=== PATIENT | female | born 1975 | race Caucasian/White ===

== ENCOUNTER → 2024-04-25 | Emergency (ER) | payer OTHER ==
[~2024-04-25] VITALS: Ht 167.6 cm; Wt 81.8 kg
[~2024-04-25] MED LIST: ARIP20TA PO; ARIP30TA PO; DIVA-111 PO; INSLAN SQ; INSU100V51 SQ; LAMO25TA36 PO; LANS15CA14 PO; LITH300C3 PO; METF-1211 PO; METF-446 PO; METO25 PO; ROSU20TA73 PO; SEMA1PEN3 SQ; SERT-439 PO; SERT-440 PO
[2024-04-25 15:54] VITALS: TEMP 98.1
[2024-04-25 16:32] LABS: BASOPHILS % (AUTO) 0.2 % (0.0-2.0); EOSINOPHILS % (AUTO) 1.2 % (1.0-6.0); HEMATOCRIT 38.8 % (36-46); HEMOGLOBIN 12.1 g/dL (12.0-16.0); LYMPHOCYTES # (AUTO) 3.7 K/uL (1.0-4.8); LYMPHOCYTES % (AUTO) 36.8 % (22.0-44.0); MEAN CORPUSCULAR HEMOGLOBIN 22.9 pg (26.0-34.0); MEAN CORPUSCULAR HGB CONC 31.1 G/dL (31.0-37.0); MEAN CORPUSCULAR VOLUME 74 fL (80-100); MONOCYTES # (AUTO) 0.6 K/uL (0.1-1.0); MONOCYTES % (AUTO) 5.9 % (2.0-9.0); NEUTROPHILS # (AUTO) 5.7 K/uL (1.8-7.7); NEUTROPHILS % (AUTO) 55.9 % (40.0-70.0); PLATELET COUNT (AUTO) 239 K/uL (150-450); RED BLOOD CELL COUNT(AUTO) 5.27 MIL/uL (4.00-5.20); RED CELL DISTRIBUTION WIDTH 17.4 % (11.5-14.5); WHITE BLOOD COUNT (AUTO) 10.2 K/uL (4.5-11.0)
[2024-04-25 16:45] LABS: RBC MORPHOLOGY COMMENT ABNORMAL RBC MORPH
[2024-04-25 16:50] LABS: ANION GAP 10 mmol/L (8-16); CALCIUM, TOTAL 8.8 mg/dL (8.8-10.5); CARBON DIOXIDE 26 mmol/L (22-29); CHLORIDE 104 mmol/L (98-107); CREATININE 0.59 mg/dL (0.60-1.30); GLOMERULAR FILTR. RATE CALC > 60 mL/min (>60); GLUCOSE,RANDOM 97 mg/dL (70-110); POTASSIUM 4.1 mmol/L (3.5-5.1); SODIUM SERUM 140 mmol/L (136-145); UREA NITROGEN, BLOOD 8 mg/dL (7-18)
[2024-04-25 16:53] LABS: ALCOHOL, BLOOD (SERUM) < 3 mg/dL (0-10)
[2024-04-25 17:03] LABS: HCG,QUANTITATIVE 1 mIU/mL (0-6)
[2024-04-25] MEDS: PERTUSS(ACELL),DIPH,TET/PF 0.5 ML SYRINGE [ADULT] IM. ONE (17:58)
[2024-04-25 18:02] LABS: COVID AG,FIA SOURCE NPH
[2024-04-25 19:00] LABS: SARS-COV2 (COVID) ANTIGEN,FIA Negative (Negative)
[2024-04-25 20:29] VITALS: BP 142/79; PULSE 83; RESP 16; O2SAT 99
== END | disposition still patient (30) ==
LOC: EMS 14:56
DX: S61.512A Laceration without foreign body of left wrist, initial encounter (principal); F33.9 Major depressive disorder, recurrent, unspecified; R45.851 Suicidal ideations; F41.9 Anxiety disorder, unspecified; E11.9 Type 2 diabetes mellitus without complications; I10 Essential (primary) hypertension; F20.9 Schizophrenia, unspecified; Z88.0 Allergy status to penicillin; Z20.822 Contact with and (suspected) exposure to COVID-19; W45.8XXA Other foreign body or object entering through skin, initial encounter; Y93.89 Activity, other specified; Y92.89 Other specified places as the place of occurrence of the external cause; Y99.8 Other external cause status
CPT/HCPCS: 99285; 87426; 80048; 84702; 85025; 36415; 90715; 90471; G0480